=== PATIENT | male | born 1990 | race American Indian/Alaskan Native ===

== ENCOUNTER 2019-01-03 09:34 | Emergency (ER) | payer OTHER ==
[2019-01-03 09:42] VITALS: BP 130/86
--- NOTE | 2019-01-03 09:54 | Emergency Department Report ---
HPI - General Chief Complaint: Abdominal Pain Time Seen by Provider: 01/03/19 09:43 - HPI HPI: Room 36 The patient is a 28-year-old male presenting with a chief complaint of abdominal pain. Patient states his suprapubic pain intermittently for the past 4-5 months. Patient states her past 2 months he's had intermittent urinary frequency. The patient states 2 months ago he went to see his primary physician and had a urine culture performed. The patient states he was told if he did not hear back from the primary physician that his results were negative and he has not yet heard back from his physician regarding the urine culture. She denies dysuria or hematuria. Patient denies penile discharge. Location: [See above] Duration: [See above] Quality: [See above] Severity: [See above] Timing: [See above] Context: [See above] Modifying factors: [See above] Associated signs and symptoms: [see above] ED Past Medical Hx - Past Medical History Previous Medical History?: Yes Additional medical history: HSV - Surgical History Past Surgical History?: Yes Additional Surgical History: tonsillectomy - Family History Family history: no significant - Social History Smoking Status: Never Smoker Substance Use Type: Marijuana - Medications Home Medications: Home Medications Medication Instructions Recorded Confirmed Last Taken Type Ciprofloxacin HCl [Ciprofloxacin 500 mg PO Q12HR #20 tab 01/03/19 Unknown Rx TAB] ED Review of Systems ROS: Stated complaint: ABD PAIN Other details as noted in HPI Constitutional: no symptoms reported Eyes: denies: eye pain ENT: denies: throat pain Respiratory: no symptoms reported Cardiovascular: denies: chest pain Endocrine: no symptoms reported Gastrointestinal: abdominal pain Genitourinary: frequency. denies: dysuria, hematuria Musculoskeletal: denies: back pain Neurological: denies: headache Physical Exam - Physical Exam Vital Signs: Vital Signs 01/03/19 09:39 Temperature 98.9 F Pulse Rate 86 Respiratory 16 Rate Blood Pressure 130/86 O2 Sat by Pulse 98 Oximetry Physical Exam: GENERAL: The patient is well-developed well-nourished male lying on stretcher not appearing to be in acute distress. [] HEENT: Normocephalic. Atraumatic. Extraocular motions are intact. Patient has moist mucous membranes. NECK: Supple. Trachea midline CHEST/LUNGS: Clear to auscultation. There is no respiratory distress noted. HEART/CARDIOVASCULAR: Regular. There is no tachycardia. There is no gallop rub or murmur. ABDOMEN: Abdomen is soft, nontender. Patient has normal bowel sounds. There is no abdominal distention. SKIN: There is no rash. There is no edema. There is no diaphoresis. NEURO: The patient is awake, alert, and oriented. The patient is cooperative. The patient has no focal neurologic deficits. The patient has normal speech MUSCULOSKELETAL: There is no evidence of acute injury. ED Course Vital Signs 01/03/19 09:39 Temperature 98.9 F Pulse Rate 86 Respiratory 16 Rate Blood Pressure 130/86 O2 Sat by Pulse 98 Oximetry ED Medical Decision Making - Lab Data Result diagrams: 01/03/19 09:57 01/03/19 09:57 Laboratory Tests 01/03/19 01/03/19 01/03/19 09:57 09:57 10:03 WBC 4.2 L RBC 5.07 H Hgb 15.4 H Hct 45.6 MCV 90 MCH 30 MCHC 34 RDW 13.1 L Plt Count 314 Lymph % (Auto) 46.0 H Walsh % (Auto) 13.1 H Eos % (Auto) 1.7 Baso % (Auto) 1.6 Lymph # 2.0 Walsh # 0.6 Eos # 0.1 Baso # 0.1 Seg Neutrophils % 37.6 L Seg Neutrophils # 1.6 L Sodium 142 Potassium 4.9 Chloride 103.4 Carbon Dioxide 27 Anion Gap 17 BUN 10 Creatinine 0.8 Estimated GFR > 60 BUN/Creatinine Ratio 13 Glucose 118 H Calcium 9.4 Total Bilirubin 0.50 AST 20 ALT 16 Alkaline Phosphatase 67 Total Protein 7.1 Albumin 4.9 Albumin/Globulin Ratio 2.2 Urine Color Yellow Urine Turbidity Clear Urine pH 6.0 Ur Specific [place] 1.027 Urine Protein <15 mg/dl Urine Glucose (UA) Neg Urine Ketones Neg Urine Blood Neg Urine Nitrite Neg Urine Bilirubin Neg Urine Urobilinogen 2.0 Ur Leukocyte Esterase Sm Urine WBC (Auto) 29.0 H Urine RBC (Auto) 2.0 Urine Mucus Few - Differential Diagnosis UTI, Critical care attestation.: If time is entered above; I have spent that time in minutes in the direct care of this critically ill patient, excluding procedure time. ED Disposition Clinical Impression: Abdominal pain, Urinary frequency, UTI (urinary tract infection) Disposition: - TO HOME OR SELFCARE Is pt being admited?: No Does the pt Need Aspirin: No Condition: Stable Additional Instructions: Return to the emergency department should you develop worsening symptoms, inability to tolerate food or liquids, high fever or any other concerns Prescriptions: Ciprofloxacin HCl [Ciprofloxacin TAB] 500 mg PO Q12HR #20 tab Referrals: CHRISTINA BAPTISTE MD [Primary Care Provider] - 3-5 Days SOUMYA KAYE MD [Staff Physician] - 3-5 Days (Dr. Kaye is a urologist. Please follow up with him for further evaluation) Time of Disposition: 11:09
[2019-01-03 10:32] LABS: Basophils # (Auto) 0.1 K/mm3 (0.0-0.1); Basophils % (Auto) 1.6 % (0.0-1.8); Eosinophils # (Auto) 0.1 K/mm3 (0.0-0.4); Eosinophils % (Auto) 1.7 % (0.0-4.3); Hematocrit 45.6 % (35.5-45.6); Hemoglobin 15.4 gm/dl (11.8-15.2); Mean Corpuscular HGB Conc 34 % (32-34); Mean Corpuscular Volume 90 fl (84-94); Monocytes # (Auto) 0.6 K/mm3 (0.0-0.8); Monocytes % (Auto) 13.1 % (0.0-7.3); Platelet Count 314 K/mm3 (140-440); Red Blood Count 5.07 M/mm3 (3.65-5.03); Red Cell Distribution Width 13.1 % (13.2-15.2)
[2019-01-03 10:37] LABS: Bilirubin,Urine NEG (Negative); Blood,Urine NEG (Negative); Color,Urine Yellow (Yellow); Mucus,Urine FEW /HPF; Protein,Urine <15 mg/dL mg/dL (Negative)
[2019-01-03 10:58] LABS: Alanine Aminotransferase 16 units/L (7-56); Albumin 4.9 g/dL (3.9-5); BUN/Creatinine Ratio 13; Blood Urea Nitrogen 10 mg/dL (9-20); Calcium 9.4 mg/dL (8.4-10.2); Hemolysis Index 22
[2019-01-03] MEDS ORDERED: ZITHROMAX PO ONE (11:08)
[2019-01-03] MEDS ORDERED: ROCEPHIN IM ONE (11:08)
[2019-01-03] MEDS ORDERED: XYLOCAINE 1% MPF 5 mL INFILTRATI ONE (11:08)
== END 2019-01-03 11:56 | disposition home or self-care (01) ==
LOC: ED 09:34
DX: N39.0 Urinary tract infection, site not specified (principal); F12.10 Cannabis abuse, uncomplicated; Z90.89 Acquired absence of other organs
CPT/HCPCS: 36415; 80053; 81001; 85025; 87086; 87591; 96372; 99283; J0696

== ENCOUNTER 2020-04-02 15:40 | Emergency (ER) | payer OTHER | END 2020-04-02 18:42 | disposition left against medical advice (07) | LOC: ED 15:40 | DX: Z00.8 Encounter for other general examination (principal); Z53.21 Procedure and treatment not carried out due to patient leaving prior to being seen by health care provider ==

== ENCOUNTER 2021-01-02 08:27 | Emergency (ER) | payer OTHER ==
[2021-01-02] MEDS ORDERED: KETOROLAC 10 MG TAB PO ONE (09:27)
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
[2021-01-02 09:52] VITALS: BP 128/71
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
== END 2021-01-02 10:53 | disposition home or self-care (01) ==
LOC: ED 08:27
DX: M54.2 Cervicalgia (principal); M54.42 Lumbago with sciatica, left side; R03.0 Elevated blood-pressure reading, without diagnosis of hypertension; F12.90 Cannabis use, unspecified, uncomplicated; Z90.89 Acquired absence of other organs; Z79.899 Other long term (current) drug therapy; V87.7XXA Person injured in collision between other specified motor vehicles (traffic), initial encounter; Y93.89 Activity, other specified; Y92.488 Other paved roadways as the place of occurrence of the external cause; Y99.8 Other external cause status
CPT/HCPCS: 72040; 72100; 99283